=== PATIENT | female | born 2000 | race Caucasian/White ===

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

== ENCOUNTER 2019-10-21 11:10 | Emergency (ER) | payer OTHER ==
[2019-10-21] MEDS ORDERED: Tetan/Diph/Pertus SYR(Tdap)* 0.5 ML SYR(BOOSTRIX) use SYR contains LATEX IM ONE (11:53)
[2019-10-21 11:54] VITALS: BP 117/88
--- NOTE | 2019-10-21 11:58 | UC ---
Lower Extremity/Ankle HPI - HPI Summary HPI Summary: 19-year-old female comes in with a chief complaint of a puncture wound right foot. Patient stepped on part of a iPhone double end sewer. One of the prongs that goes into a wall socket punctured her foot. She pulled it out. Bleeding stopped with direct pressure. Patient's not sure when her last tetanus was. - History of Current Complaint Chief Complaint: UCLowerExtremity Stated Complaint: PUNCTURE WOUND Time Seen by Provider: 10/21/19 11:37 Hx Last Menstrual Period: BEGINNING OF SEPTEMBER Pain Intensity: 4 - Allergies/Home Medications Allergies/Adverse Reactions: Allergies Allergy/AdvReac Type Severity Reaction Status Date / Time No Known Allergies Allergy Verified 10/21/19 11:40 Home Medications: Home Medications Cephalexin CAP* [Keflex CAP*] 500 mg PO QID #40 cap 10/21/19 [Rx] PMH/Surg Hx/FS Hx/Imm Hx Previously Healthy: Yes - Surgical History Surgical History: None - Family History Known Family History: Negative: Cardiac Disease, Hypertension, Diabetes - Social History Alcohol Use: None Substance Use Type: Marijuana Smoking Status (MU): Never Smoked Tobacco - Immunization History Most Recent Influenza Vaccination: none Most Recent Tetanus Shot: unknown Vaccination Up to Date: Yes Review of Systems All Other Systems Reviewed And Are Negative: Yes Constitutional: Positive: Negative Skin: Positive: Other - SEE HPI Eyes: Positive: Negative ENT: Positive: Negative Respiratory: Positive: Negative Gastrointestinal: Positive: Negative Motor: Positive: Negative Neurovascular: Positive: Negative Musculoskeletal: Positive: Other: - SEE HPI Neurological/Mental Status: Positive: Negative Psychological: Positive: Negative Is Patient Immunocompromised?: No Physical Exam Triage Information Reviewed: Yes Appearance: Well-Appearing, Well-Nourished, Pain Distress - MILD WITH PALPATION OF WOUND SITE Vital Signs Reviewed: Yes Eye Exam: Normal Eyes: Positive: Conjunctiva Clear Neck: Positive: Supple Respiratory: Positive: No respiratory distress Musculoskeletal: Positive: Strength Intact, ROM Intact Neurological: Positive: Alert Psychological: Positive: Age Appropriate Behavior Skin: Positive: Other - 7 mm flap puncture wound on the sole of right foot. No obvious foreign body. Bleeding is controlled. Lower Extremity Course/Dx - Course Course Of Treatment: The electrical prong from the eye from double end sewer is intact therefore the potential for foreign body is very low. The wound is a flap wound which makes it appear that the prong went in more sideways and directly in making infection much less likely. Wound was cleaned by nursing. T dap given here in clinic. Discussed with the patient to keep the wound clean. Also given prescription for Keflex that she should start if there is any signs of infection. - Differential Dx/Diagnosis Provider Diagnosis: Puncture wound of right foot Discharge ED - Sign-Out/Discharge Documenting (check all that apply): Patient Departure All imaging exams completed and their final reports reviewed: No Studies - Discharge Plan Condition: Stable Disposition: HOME Prescriptions: Cephalexin CAP* [Keflex CAP*] 500 mg PO QID #40 cap Patient Education Materials: Puncture Wound (ED) Referrals: Pauly Galvan MD [Primary Care Provider] - Additional Instructions: FOLLOW UP WITH YOUR DOCTOR IF NOT COMPLETELY IMPROVED. START THE ANTIBIOTIC IF THERE ARE ANY SIGNS OF INFECTION. YOU HAD THE TDAP (TETANUS/DIPHTHERIA/PERTUSSIS) IMMUNIZATION TODAY. GET REEVALUATED IF NOT IMPROVED OR WORSE; PAIN, SPREAD OF OF INFECTION, FEVER, YOU FEEL ILL OR ANY QUESTIONS OR CONCERNS. - Billing Disposition and Condition Condition: STABLE Disposition: Home
== END 2019-10-21 12:14 | disposition home or self-care (01) ==
LOC: UCEAST 11:10
DX: S91.331A Puncture wound without foreign body, right foot, initial encounter (principal); W22.8XXA Striking against or struck by other objects, initial encounter; Y92.9 Unspecified place or not applicable; Z23 Encounter for immunization
CPT/HCPCS: 90715; 99212; G0463